=== PATIENT | female | born 1965 | race Caucasian/White ===

== ENCOUNTER → 2019-04-09 | Day surgery (SDC) | payer OTHER ==
[2019-04-08 15:17] VITALS: BMI 25.7
[~2019-04-09] MED LIST: BUPIVACAINE HCL/PF 0.5% (5 MG/ML) 30 ML VIAL IJ ONE; DEXAMETHASONE SOD PHOSPHATE 4 MG/1 ML VIAL ONE; DEXAMETHASONE SOD PHOSPHATE/PF 10 MG/ML SDV ONE; DEXMEDETOMIDINE HCL 200 MCG/2 ML IVPB ONE; LACTATED RINGERS SOLUTION 1,000 ML IV SCH; LIDOCAINE 1%/EPI 1:100000 (20 ML MULTI DOSE VIAL) ONE; MIDAZOLAM HCL 2 MG/2 ML SINGLE DOSE VIAL ONE; ONDANSETRON 4 MG/2 ML VIAL IVPUSH PRN; PHENYLEPHRINE HCL 10 MG/1 ML SINGLE DOSE VIAL ONE; PROPOFOL 20 ML ONE; SUCCINYLCHOLINE CHLORIDE 200 MG/10 ML SYRINGE ONE; THROMBIN (BOVINE) 5,000 UNIT VIAL TP ONE; THROMBIN (RECOMBINANT) 5,000 UNIT VIAL TP ONE; ePHEDrine SULFATE 50 MG/1 ML AMPULE ONE; methylPREDNISolone ACET (DEPO) 40 MG/1 ML VIAL ONE; oxyCODONE HCL 5 MG TABLET PO PRN
--- NOTE | 2019-04-09 15:16 | HP ---
History & Physical Update - History History: No Change - Physical Physical: No Change - Assessment Assessment: No Change - Plan Plan: No Change (no change since last visit with Dr Johnson)
--- NOTE | 2019-04-09 17:28 | OP ---
Operative Note - Note: Operative Date: 04/09/19 Pre-Operative Diagnosis: lumbar stenosis, HNP Operation: L5-S1 laminectomy, decompression and microdiscectomy Post-Operative Diagnosis: Same as Pre-op Surgeon: Bob Johnson Picture Framer: Blanche Cantor Anesthesiologist/SMALL ANIMAL CARETAKER: Stanley Negron Anesthesia: General, Spinal Specimens Removed: Partial L5-S1 disc Estimated Blood Loss (mls): 15 Fluid Volume Replaced (mls): 1,400 Operative Report Dictated: Yes
--- NOTE | 2019-04-09 17:31 | SURG ---
Surgery Salad Counter Attendant Note Salad Counter Attendant: Blanche Cantor PA-C Date of Service: 04/09/19 Diagnosis: Lumbar stenosis, HNP Procedure: Lumbar laminectomy L5-S1, decompression and microdiscectomy I was present for the entirety of the operative procedure. For further detail, please refer to operative report. Visit type - Case Type Case Type: Scheduled - Emergency Emergency Visit: No - New patient This patient is new to me today: Yes Date on this admission: 04/09/19
[2019-04-09 23:10] VITALS: BP 107/67; PULSE 88; TEMP 98.3
--- NOTE | 2019-04-10 16:08 | OP ---
DATE OF OPERATION: 04/09/2019 PREOPERATIVE DIAGNOSIS: Spinal stenosis, L5-S1. POSTOPERATIVE DIAGNOSIS: Spinal stenosis, L5-S1. PROCEDURE PERFORMED: Laminectomy, L5-S1. SURGEON: Bob Johnson MD TRIM MACHINE OPERATOR: PAT Ly ESTIMATED BLOOD LOSS: 50 mL. INTRAVENOUS FLUIDS: Per Anesthesia. ANESTHESIA: General. COMPLICATIONS: None. DISPOSITION: Patient brought to the PACU in stable condition. INDICATION FOR SURGERY: Patient is a 53-year-old female who has been suffering from pain from her back down her leg. X-rays and MRI were completed which noted that she had spinal stenosis at L5-S1. She had gone through an exhaustive course of treatment for this, which included medications, physical therapy as well as injections. Unfortunately, her pain continued to persist despite all this. At this point, risks, benefits, and alternatives were discussed, and the patient consented to surgery. DESCRIPTION OF PROCEDURE: Patient was brought to the operating room by the anesthesia staff. After appropriate patient identification was performed, general anesthesia was given. Patient was positioned prone onto the OR table with all areas of bony prominences well padded at this time. Two needles were placed into her back to liliana off the L5-S1 level. X-ray was taken to confirm this as correct. [place] were removed, and 10 mL of lidocaine with epinephrine were injected into her back at this time. Her back was prepped and draped in a sterile manner. At this point, timeout was completed. An incision was made from the top of L5 down to the bottom of S1. Dissection was carried down to the fascia. Fascia was split open at this time, and appropriate retractors were then placed in. A spinal needle was placed onto the L5 lamina to liliana off the L5 level. X-ray was taken to confirm this as correct. Needle was removed, and portions of the L5-S1 lamina on the left-hand side were removed. Flavum was identified, was removed. The S1 nerve root was visualized. It was mobilized medially. A disk herniation was noted. It was removed at this time. Portions of the inferior-superior facets were removed to complete a foraminotomy. By the end of the procedure, the S1 nerve root appeared to be well decompressed. All bleeding was well controlled at this time. Steroid was placed over the nerve root. FloSeal was placed over that. The fascia was closed with a No. 1 Vicryl suture. Subcutaneous tissues were closed with 2-0 Vicryl suture. Skin was closed with 3-0 Monocryl suture. Dermabond was applied. Steri-Strips were applied. A sterile dressing was applied. Patient was placed supine on the OR bed extubated and brought to the PACU in stable condition. Valdemar [id number] MTDD
--- NOTE | 2019-04-16 15:10 | PATH ---
Surgical Pathology Report Patient Name: JESSICA NUNEZ Med. Rec. #: [id number] /Age/Gender: 1965 (Age: 53) / F Account: [id number] Location: [facility] Taken: 04/09/2019 Received: 04/10/2019 Reported: 04/16/2019 Physicians: Bob Johnson M.D. Specimen(s) Received DISC L5-S1 Clinical History Spinal stenosis Final Diagnosis L5-S1 DISC, LAMINECTOMY: CARTILAGE WITH DEGENERATIVE CHANGES. Electronically Signed Blanche Pendleton M.D. Gross Description Received in formalin, labeled "L5-S1 disc" is a 2.2 x 1.3 x 0.4 cm portion of light little fibrocartilaginous tissue. Entirely submitted in one cassette. AE/04/14/2019 ebram/04/14/2019
== END | disposition home or self-care (01) ==
LOC: FASU 11:06
PROVIDERS: ATTEND Orthopaedic Surgery Orthopaedic Surgery of the Spine
PROC: 01NB0ZZ Release Lumbar Nerve, Open Approach (ICD-10-PCS; principal; 2019-04-09 16:17)
DX: M48.07 Spinal stenosis, lumbosacral region (principal)
CPT/HCPCS: 72100-TC-FY; 76000-TC-FY; 88304-TC; 94760